=== PATIENT | male | born 1980 | race Caucasian/White ===

== ENCOUNTER 2017-03-06 21:32 | Emergency (ER) | payer BC, OTHER ==
--- NOTE | 2017-03-06 21:48 | EDM.PDOC ---
ED HPI GENERAL MEDICAL PROBLEM - General Chief Complaint: General Stated Complaint: PT HAS STOMACH PAINS Time Seen by Provider: 03/06/17 21:36 - History of Present Illness INITIAL COMMENTS - FREE TEXT/NARRATIVE: HISTORY AND PHYSICAL: History of present illness: Patient 36-year-old white male presents with concern of anxiety and abdominal discomfort patient is on medicine for anxiolysis that he stopped taking recently due to abatement of his symptoms but did take 1 dose tonight for recurrence he feels like his stomach is been shifting related to certain positions but no vomiting diarrhea nausea vomiting fever chills or other complaints. Review of systems: As per history of present illness and below otherwise all systems reviewed and negative. Past medical history: As per history of present illness and as reviewed below otherwise noncontributory. Surgical history: As per history of present illness and as reviewed below otherwise noncontributory. Social history: No reported history of drug or alcohol abuse. Family history: As per history of present illness and as reviewed below otherwise noncontributory. Physical exam: HEENT: Atraumatic, normocephalic, pupils reactive, negative for conjunctival pallor or scleral icterus, mucous membranes moist, throat clear, neck supple, nontender, trachea midline. Lungs: Clear to auscultation, breath sounds equal bilaterally, chest nontender. Heart: S1S2, regular, negative for clicks, rubs, or JVD. Abdomen: Soft, nondistended, nontender. Negative for masses or hepatosplenomegaly. Negative for costovertebral tenderness. Pelvis: Stable nontender. Genitourinary: Deferred. Rectal: Deferred. Extremities: Atraumatic, negative for cords or calf pain. Neurovascular unremarkable. Neuro: Awake, alert, anxious, oriented. Cranial nerves II through XII unremarkable. Cerebellum unremarkable. Motor and sensory unremarkable throughout. Exam nonfocal. Diagnostics: CBC CMP amylase lipase UA abdominal series chest x-ray Therapeutics: None Impression: #1 nonspecific abdominal pain #2 anxiety Definitive disposition and diagnosis as appropriate pending reevaluation and review of above. - Related Data Allergies Allergy/AdvReac Type Severity Reaction Status Date / Time No Known Allergies Allergy Verified 03/06/17 21:48 Home Meds: Home Meds PARoxetine HCl [Paroxetine HCl] 1 tab PO DAILY 11/07/14 [History] Past Medical History - Past Health History Medical/Surgical History: Denies Medical/Surgical History Social & Family History - Tobacco Use Smoking Status *Q: Never Smoker - Recreational Drug Use Recreational Drug Use: No ED ROS GENERAL - Review of Systems Review Of Systems: ROS reveals no pertinent complaints other than HPI. ED EXAM, GENERAL - Physical Exam Exam: See Below (See dictation) Course - Vital Signs Last Recorded V/S: Last Vital Signs Temp 37.1 C 03/06/17 21:43 Pulse 85 03/06/17 21:43 Resp 12 03/06/17 21:43 BP 161/93 H 03/06/17 21:43 Pulse Ox 97 03/06/17 21:43 - Orders/Labs/Meds Orders: Active Orders 24 hr Category Date Time Status Abdomen 2V AP Flat Upright [CR] Stat Exams 03/06/17 21:46 Taken Chest 1V Frontal [CR] Stat Exams 03/06/17 21:46 Taken Labs: Laboratory Tests 03/06/17 03/06/17 03/06/17 Range/Units 21:53 21:53 21:58 WBC 8.00 (4.0-11.0) K/uL RBC 5.27 (4.50-5.90) M/uL Hgb 15.9 (13.0-17.0) g/dL Hct 45.9 (38.0-50.0) % MCV 87.1 (80.0-98.0) fL MCH 30.2 (27.0-32.0) pg MCHC 34.6 (31.0-37.0) g/dL RDW Std Deviation 41.5 (28.0-62.0) fl RDW Coeff of [place] 13 (11.0-15.0) % Plt Count 266 (150-400) K/uL MPV 9.10 (7.40-12.00) fL Neut % (Auto) 47.5 L (48.0-80.0) % Lymph % (Auto) 41.6 H (16.0-40.0) % [place] % (Auto) 8.9 (0.0-15.0) % Eos % (Auto) 1.6 (0.0-7.0) % Baso % (Auto) 0.4 (0.0-1.5) % Neut # (Auto) 3.8 (1.4-5.7) K/uL Lymph # (Auto) 3.3 H (0.6-2.4) K/uL [place] # (Auto) 0.7 (0.0-0.8) K/uL Eos # (Auto) 0.1 (0.0-0.7) K/uL Baso # (Auto) 0.0 (0.0-0.1) K/uL Nucleated RBC % 0.0 /100WBC Nucleated RBCs # 0 K/uL Sodium 140 (136-146) mmol/L Potassium 3.6 (3.5-5.1) mmol/L Chloride 109 (98-110) mmol/L Carbon Dioxide 19 L (21-31) mmol/L BUN 11 (6.0-23.0) mg/dL Creatinine 1.0 (0.6-1.5) mg/dL Est Cr Clr Drug Dosing TNP Estimated GFR (MDRD) > 60.0 ml/min Glucose 106 (60-110) mg/dL Calcium 9.5 (8.8-10.8) mg/dL Total Bilirubin 0.5 (0.1-1.5) mg/dL AST 18 (5-40) IU/L ALT 24 (8-54) IU/L Alkaline Phosphatase 77 (40-150) Total Protein 7.7 (6.0-8.0) g/dL Albumin 4.4 (3.5-5.0) g/dL Globulin 3.3 (2.0-3.5) g/dL Albumin/Globulin Ratio 1.3 (1.3-2.8) Amylase 51 (10-90) U/L Lipase 35 (7-80) U/L Urine Color YELLOW Urine Appearance CLEAR Urine pH 6.0 (5.0-8.0) Ur Specific [place] 1.020 (1.001-1.035) Urine Protein NEGATIVE (NEGATIVE) mg/dL Urine Glucose (UA) NEGATIVE (NEGATIVE) mg/dL Urine Ketones NEGATIVE (NEGATIVE) mg/dL Urine Occult Blood NEGATIVE (NEGATIVE) Urine Nitrite NEGATIVE (NEGATIVE) Urine Bilirubin NEGATIVE (NEGATIVE) Urine Urobilinogen 1.0 (<2.0) EU/dL Ur Leukocyte Esterase NEGATIVE (NEGATIVE) Urine RBC 0-2 (0-2/HPF) Urine WBC 0-5 (0-5/HPF) Ur Epithelial Cells RARE (NONE-FEW) Ur Renal Epithelial Cell RARE Urine Bacteria FEW (NEGATIVE) Departure - Departure Time of Disposition: 22:53 Disposition: Home, Self-Care 01 Condition: Good Clinical Impression: Abdominal pain, Anxiety - Discharge Information Referrals: PCP,None [Primary Care Provider] - Forms: ED Department Discharge Additional Instructions: The following information is given to patients seen in the emergency department who are being discharged to home. This information is to outline your options for follow-up care. We provide all patients seen in our emergency department with a follow-up referral. The need for follow-up, as well as the timing and circumstances, are variable depending upon the specifics of your emergency department visit. If you don't have a primary care physician on staff, we will provide you with a referral. We always advise you to contact your personal physician following an emergency department visit to inform them of the circumstance of the visit and for follow-up with them and/or the need for any referrals to a consulting specialist. The emergency department will also refer you to a specialist when appropriate. This referral assures that you have the opportunity for followup care with a specialist. All of these measure are taken in an effort to provide you with optimal care, which includes your followup. Under all circumstances we always encourage you to contact your private physician who remains a resource for coordinating your care. When calling for followup care, please make the office aware that this follow-up is from your recent emergency room visit. If for any reason you are refused follow-up, please contact the [facility] emergency department at and asked to speak to the emergency department charge nurse. Follow-up primary medical doctor 1-2 days continue current medications return as needed as discussed - My Orders Last 24 Hours: My Active Orders 03/06/17 21:46 Abdomen 2V AP Flat Upright [CR] Stat Chest 1V Frontal [CR] Stat - Assessment/Plan Last 24 Hours: My Active Orders 03/06/17 21:46 Abdomen 2V AP Flat Upright [CR] Stat Chest 1V Frontal [CR] Stat
[2017-03-06 22:24] LABS: CHLORIDE,CL 109 mmol/L (98-110); SODIUM,NA 140 mmol/L (136-146)
[2017-03-06 23:20] VITALS: BP 147/88
--- NOTE | 2017-03-08 06:26 | CR ---
EXAM DATE: 03/06/17 PATIENT'S AGE: 36 Patient: MARIELA KAISER Facility: [place], [place] Site . Site : 1980 Study: XRay Chest [id number]/24/2017 10:29:01 PM Ordering Physician: Doctor Gonzalez Final Report: INDICATION: Chest pain TECHNIQUE: Chest radiograph 1 view COMPARISON: None FINDINGS: Cardiovascular and mediastinum: The cardiac silhouette is normal in appearance and size. Mediastinum is within normal limits. Lungs and pleural spaces: Both lungs are unremarkable in appearance. No sign of pleural effusion. No pneumothorax is seen. Bones and soft tissues: No significant findings. IMPRESSION: 1. No acute cardiopulmonary disease seen. Dictated by: Ricardo Ibarra MD @ 03/06/2017 22:43:43 (Electronic Signature) Report Signed by Proxy. [email or web address]
--- NOTE | 2017-03-08 06:27 | CR ---
EXAM DATE: 03/06/17 PATIENT'S AGE: 36 Patient: MARIELA KAISER Facility: [place], [place] Site . Site : 1980 Study: XRay Abdomen [id number]/24/2017 10:29:43 PM Ordering Physician: Doctor Gonzalez Final Report: INDICATION: Patient states he fell like his abdominal is "loose", history of hernia TECHNIQUE: Abdominal radiograph 5 views COMPARISON: None FINDINGS: Moderate degradation of image quality noted due to body habitus. Bowel: The bowel gas pattern is normal without evidence of bowel obstruction. Soft tissues: No evidence of pneumoperitoneum present. No sign of soft tissue mass seen. No suspicious calcifications noted. Bones: Unremarkable for age. IMPRESSION: 1. Unremarkable radiographs of the abdomen. Dictated by: Ricardo Ibarra MD @ 03/06/2017 22:45:13 (Electronic Signature) Report Signed by Proxy. [place]
== END 2017-03-06 23:23 | disposition home or self-care (01) ==
LOC: MW.ED 21:32
DX: R10.9 Unspecified abdominal pain (principal); F41.9 Anxiety disorder, unspecified; Z79.899 Other long term (current) drug therapy
CPT/HCPCS: 36415; 71010; 71010-26; 74020; 74020-26; 80053; 81001; 82150; 83690; 85025; 99284

== ENCOUNTER 2022-04-08 10:11 | Emergency (ER) | payer OTHER, BC ==
[2022-04-08] MEDS ORDERED: Diphtheria,Pertussis(Acell),Tetanus Vaccine 0.5 ML Syringe IM ONE (11:17)
[2022-04-08 11:33] VITALS: BP 134/98; PULSE 69
== END 2022-04-08 11:30 | disposition home or self-care (01) ==
LOC: MW.ED 10:11
DX: S61.214A Laceration without foreign body of right ring finger without damage to nail, initial encounter (principal); Z79.899 Other long term (current) drug therapy; Z23 Encounter for immunization; W26.8XXA Contact with other sharp object(s), not elsewhere classified, initial encounter; Y99.0 Civilian activity done for income or pay
CPT/HCPCS: 12001; 90471; 90715; 99282-25

== ENCOUNTER 2022-04-21 09:03 | Emergency (ER) | payer BC, OTHER ==
[2022-04-21 09:14] VITALS: BP 137/80; PULSE 64
== END 2022-04-21 09:22 | disposition left against medical advice (07) ==
LOC: MW.ED 09:03
DX: S61.411D Laceration without foreign body of right hand, subsequent encounter (principal); Z48.02 Encounter for removal of sutures
CPT/HCPCS: 99281

== ENCOUNTER 2022-04-28 22:03 | Inpatient (IN) | payer BC, OTHER ==
[2022-04-28] MEDS ORDERED: Sodium Chloride 0.9% 2.5 ML Syringe FLUSH PRN (22:15)
[2022-04-28] MEDS ORDERED: Sodium Chloride 0.9% 10 ML Syringe FLUSH PRN (22:15)
[2022-04-28] MEDS ORDERED: Ondansetron 4 MG/2 ML SDV IVPUSH ONE (22:16)
[2022-04-28] MEDS ORDERED: Sodium Chloride 0.9% 1,000 ML IV ONE (22:16)
[2022-04-28] MEDS ORDERED: Morphine 4 MG/ML Syringe IVPUSH ONE (22:16)
[2022-04-28 23:06] LABS: CARBON DIOXIDE,CO2 22.9 mmol/L (21.0-32.0); POTASSIUM,K 3.5 mmol/L (3.5-5.1)
[2022-04-28] MEDS ORDERED: Iopamidol 755 MG/ML 500 ML Multipack Bottle IVPUSH STA (23:50)
[2022-04-29] MEDS ORDERED: Piperacillin/Tazobactam 4.5 GM in Sodium Chloride 0.9% 100 ML IV ONE ×2 (00:25→09:44)
[2022-04-29] MEDS ORDERED: Morphine 4 MG/ML Syringe IVPUSH ONE ×3 (02:34→10:11)
[2022-04-29 09:29] LABS: CARBON DIOXIDE,CO2 27.4 mmol/L (21.0-32.0); POTASSIUM,K 4.1 mmol/L (3.5-5.1)
[2022-04-29] MEDS ORDERED: Ondansetron 4 MG/2 ML SDV IVPUSH PRN (11:40)
[2022-04-29] MEDS ORDERED: Acetaminophen 1,000 MG in Premix Bag 1 BAG IV PRN (11:40)
[2022-04-29] MEDS: Lactated Ringers 1,000 ML IV SCH ×2 (13:29→22:52)
[2022-04-29] MEDS: Morphine 2 MG/ML SYRINGE IVPUSH PRN (13:56)
[2022-04-29] MEDS: Piperacillin/Tazobactam 4.5 GM in Sodium Chloride 0.9% 100 ML IV SCH ×2 (15:35→21:06)
[2022-04-30] MEDS: Piperacillin/Tazobactam 4.5 GM in Sodium Chloride 0.9% 100 ML IV SCH ×4 (03:40→21:40)
[2022-04-30] MEDS: Morphine 2 MG/ML SYRINGE IVPUSH PRN ×2 (03:53→07:41)
[2022-04-30 06:44] LABS: CARBON DIOXIDE,CO2 25.5 mmol/L (21.0-32.0); POTASSIUM,K 4.4 mmol/L (3.5-5.1)
[2022-04-30] MEDS: Lactated Ringers 1,000 ML IV SCH ×2 (07:43→19:23)
[2022-05-01] MEDS: Lactated Ringers 1,000 ML IV SCH ×2 (03:51→15:37)
[2022-05-01] MEDS: Piperacillin/Tazobactam 4.5 GM in Sodium Chloride 0.9% 100 ML IV SCH ×4 (03:51→22:07)
[2022-05-01] MEDS ORDERED: Acetaminophen 325 MG Tab PO PRN (07:43)
[2022-05-02] MEDS: Piperacillin/Tazobactam 4.5 GM in Sodium Chloride 0.9% 100 ML IV SCH ×2 (03:40→10:15)
[2022-05-02 08:30] VITALS: BP 141/82; PULSE 58
== END 2022-05-02 11:50 | disposition home or self-care (01) | DRG 244 ==
LOC: MW.ED 22:03 → MW.MS 04-29 11:37 → OBSVTOIN 04-30 10:44 → MW.MS 04-30 10:45
PROVIDERS: ADMIT Surgery; ATTEND Surgery
DX: K57.20 Diverticulitis of large intestine with perforation and abscess without bleeding (principal); E78.00 Pure hypercholesterolemia, unspecified; F41.9 Anxiety disorder, unspecified; K58.9 Irritable bowel syndrome, unspecified; Z20.822 Contact with and (suspected) exposure to COVID-19
CPT/HCPCS: 36415; 74177; 74177-26; 80053; 83690; 83735; 85025; 96361; 96365; 96366; 96375; 96376; 99285-25; G0378; J0131; J2270; J2405; J2543; J3490; J7030; J7050; J7120; Q9967; U0002

== ENCOUNTER 2023-05-19 13:04 | Emergency (ER) | payer BC ==
[2023-05-19 14:45] LABS: APPEARANCE,URINE SLT CLOUDY; BILIRUBIN,URINE NEGATIVE (NEGATIVE); COLOR,URINE YELLOW; GLUCOSE,URINE NEGATIVE (NEGATIVE); KETONES,URINE NEGATIVE (NEGATIVE); LEUKOCYTE ESTERASE,URINE NEGATIVE (NEGATIVE); NITRITE,URINE NEGATIVE (NEGATIVE); OCCULT BLOOD,URINE LARGE (NEGATIVE); PROTEIN,URINE 30 mg/dL (NEGATIVE); UROBILINOGEN,URINE 0.2 EU/dL (<2.0)
[2023-05-19 15:07] LABS: RBC,URINE TOO NUMEROUS TO CT (0-2/HPF); WBC,URINE 0-2 (0-5/HPF)
[2023-05-19 15:08] LABS: EPITHELIAL CELLS,URINE RARE (NONE-FEW)
[2023-05-19 15:09] LABS: BACTERIA,URINE NOT SEEN (NEGATIVE); MUCUS,URINE MODERATE (NONE-MOD); SPERM,URINE PRESENT (NEGATIVE)
[2023-05-19 15:39] VITALS: BP 140/94; PULSE 83
[2023-05-19 15:47] LABS: C. TRACHOMATIS BY PCR NOT DETECTED; N. GONORRHOEAE BY PCR NOT DETECTED
== END 2023-05-19 15:38 | disposition home or self-care (01) ==
LOC: MW.ED 13:04
DX: R31.9 Hematuria, unspecified (principal); E66.9 Obesity, unspecified; Z88.8 Allergy status to other drugs, medicaments and biological substances; Z68.37 Body mass index [BMI] 37.0-37.9, adult
CPT/HCPCS: 81001; 87491; 87591; 99283

== ENCOUNTER 2023-07-03 14:42 | Emergency (ER) | payer BC ==
[2023-07-03] MEDS: Ibuprofen 600 MG Tab PO ONE (16:03)
[2023-07-03] MEDS: Bacitracin Oint 1 GM U/D Packet TOP ONE (16:04)
[2023-07-03 16:26] VITALS: BP 135/80; PULSE 80
== END 2023-07-03 16:26 | disposition home or self-care (01) ==
LOC: MW.ED 14:42
DX: S01.01XA Laceration without foreign body of scalp, initial encounter (principal); Z88.8 Allergy status to other drugs, medicaments and biological substances; Z79.899 Other long term (current) drug therapy; Z75.8 Other problems related to medical facilities and other health care; W20.8XXA Other cause of strike by thrown, projected or falling object, initial encounter
CPT/HCPCS: 99282; A9270; 99283